=== PATIENT | male | born 1955 | race Caucasian/White ===

== ENCOUNTER 2024-05-23 08:30 | Outpatient (AMB) | payer BC, SELFPAY ==
--- NOTE | 2024-05-23 08:49 | A.SPINEOV_ITS ---
Vital Signs 05/23/24 08:56 Height 5 ft 9 in Weight 268 lb BMI 39.6 Intake Visit Reasons: low back pain radiating to left leg Intake Note: Mr. 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 It is centered over the left facet joint/left SI joint region. The pain is present all throughout the day, aggravated with activity, specifically bending forward will irritated. He also feels the pain when he is sleeping. It can wake him up. He has tried rige-taf-bnisoxn pain medications like Tylenol and Motrin. He prefers not to take them because they really do not help much. At some point he had injections but he does not really remember where and what was done. They did help him for few weeks. Does not have any shooting pain down the leg. He had an MRI done at [facility] showing degeneration of the disc at L3-4 with some retrolisthesis and some other milder degenerative changes. He was sent today see us for an evaluation. 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 Denies any issues with his heart, lung, liver, kidneys, intestines, major bleeding disorders, blood clots, cancer Social hx: Occasional marijuana, occasional alcohol, does not smoke Medications: Takes no regular medication Allergies: None Physical exam: She is awake alert oriented no acute distress, is able to stand up and walk down the hallway, tandem gait testing is normal, strength in the upper lower extremities reveals mild hand weakness but otherwise no hyperreflexia, diffusely diminished reflexes, no Napier's sign. Imaging review: Lumbar MRI done at [facility] shows slight retrolisthesis at L3-4 with moderate stenosis, mild disc degeneration at L4-5 with [id number]-rg-jybzuyop stenosis. I did standing flexion-extension x-rays here in the office today this does not show any signs of instability. There is no significant scoliosis. There is a bridging bone spur at L3-4 on left which may have already auto fused. 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 He has had some injections in the past which temporarily work. His MRI shows some basic level degeneration with a mild retrolisthesis of L3 on L4 with some bridging osteophytes. There is moderate stenosis at this level. He has some other milder degenerative changes. Unfortunately there is nothing localizing on his MRI that would be an indication for surgery. What he is dealing with is probably some degree of muscular overuse related to his job in his physical activity on a daily basis doing construction. I recommended he follow up with his pain management team. Dr. Mckeon reviewed the MRI and x-rays with me and agrees that there is no surgery to be done here. Thank you for allowing us to care for your patient. The total time spent with this visit with this patient was 45 minutes reviewing history, physical exam, lumbar imaging review, and implementation of treatment plan or further diagnostic testing Allen Mckeon MD,PhD [facility] Orders: Orders XR lumbar spine 4V min Today M43.16 - Spondylolisthesis, lumbar region Coding Level of Care Code New Pt Level 4 (05703) Diagnoses Spondylolisthesis, lumbar region M43.16
[2024-05-23 08:56] VITALS: BMI 39.6
== END 2024-05-23 10:20 | disposition home or self-care (01) ==
PROVIDERS: PCP Nurse Practitioner Community Health; Referring Provider Nurse Practitioner Community Health; Visit Provider Physician Assistant
DX: M43.16 Spondylolisthesis, lumbar region (principal)
CPT/HCPCS: 99204

== ENCOUNTER 2024-05-23 08:30 | Outpatient (REF) | payer BC, SELFPAY | END 2024-05-23 08:31 | disposition home or self-care (01) | LOC: HO.HOSX 08:30 | PROVIDERS: PCP Nurse Practitioner Community Health; Referring Provider Nurse Practitioner Community Health; Visit Provider Physician Assistant | DX: M43.16 Spondylolisthesis, lumbar region (principal) | CPT/HCPCS: 72110 ==